=== PATIENT | male | born 1935 | race Caucasian/White ===

== ENCOUNTER 2017-03-20 20:16 | Emergency (ER) | payer MEDICARE, OTHER ==
[2017-03-20 22:00] LABS: HEMOGLOBIN 15.1 gm/dl (14.0-17.5); RED BLOOD COUNT 5.01 M/UL (4.20-5.50); WHITE BLOOD COUNT 11.1 K/UL (4.5-11.0)
== END 2017-03-20 23:40 | disposition home or self-care (01) ==
LOC: ER1 20:16
PROVIDERS: Family Medicine
DX: J18.9 Pneumonia, unspecified organism (principal)
CPT/HCPCS: 36415; 80053; 85025; 93005; 94640; 94664; 99284